=== PATIENT | female | born 1995 | race African-American/Black ===

== ENCOUNTER 2017-06-07 11:26 | Emergency (ER) | payer SELFPAY ==
[2017-06-07] MEDS ORDERED: DEXAMETHASONE SOD PHOS INJ 10 MG/1 ML VIAL IM ONE (12:24)
--- NOTE | 2017-06-07 12:42 | RADIOLOGY REPORT (SQ) ---
EXAM DESCRIPTION: CHEST PA/LAT COMPLETED DATE/TIME: 06/07/2017 12:32 pm REASON FOR STUDY: cough COMPARISON: None. EXAM PARAMETERS: NUMBER OF VIEWS: two views TECHNIQUE: Digital Frontal and Lateral radiographic views of the chest acquired. RADIATION DOSE: NA LIMITATIONS: none FINDINGS: LUNGS AND PLEURA: No opacities, masses or pneumothorax. No pleural effusion. MEDIASTINUM AND HILAR STRUCTURES: No masses or contour abnormalities. HEART AND VASCULAR STRUCTURES: Heart normal size. No evidence for failure. BONES: No acute findings. HARDWARE: None in the chest. OTHER: No other significant finding. IMPRESSION: NO SIGNIFICANT RADIOGRAPHIC FINDING IN THE CHEST. TECHNICAL DOCUMENTATION: JOB ID: [id number] [employer]- All Rights Reserved
[2017-06-07] MEDS ORDERED: KETOROLAC TROMETHAMINE INJ/PF 30 MG/1 ML SDV IM ONE (12:44)
--- NOTE | 2017-06-07 12:44 | ER Document Report ---
HPI - HPI Pain Level: 4 Notes: Patient is a 21-year-old female no significant past medical history presents the ED complaining of intermittent nasal congestion/discharge, dry semi- productive cough 1 week. Patient also complains of chest pain that is reproducible when she pushes on it x 1 week. Patient states that she has had these symptoms intermittently over the last year. Patient does admit to smoking but denies any IV drug use. Pt states that she can walk and keep active w/o any IRWIN or worsening symptoms. She denies any drug allergies. Patient states that her pains do not radiate. patient is not taking any hormones, denies any recent travel, immobilization, surgery/trauma, previous DVT /PE, or other coagulable diseases. Patient is otherwise eating and drinking without any difficulties. She is urinating normally and having normal bowel movements. Denies any headache, fever, neck pain, changes in vision/speech/ mentation/hearing, sore throat, palpitations, syncope, shortness of breath, wheeze, dyspnea, abdominal pain, nausea/vomiting/diarrhea, urinary retention, dysuria, hematuria, loss of control of bowel or bladder, numbness/tingling, or rash. - ROS Notes: REVIEW OF SYSTEMS: CONSTITUTIONAL : Denies fever, chills, or sweats. Denies recent illness. EENT: see hpi. CARDIOVASCULAR: see hpi. Denies palpitations or racing or irregular heart beat. Denies ankle edema. RESPIRATORY: see hpi. Denies shortness of breath, difficulty breathing, or wheezing. GASTROINTESTINAL: Denies abdominal pain or distention. Denies nausea, vomiting , or diarrhea. Denies blood in vomitus, stools, or per rectum. Denies black, tarry stools. Denies constipation. GENITOURINARY: Denies difficulty urinating, painful urination, burning, frequency, blood in urine, or discharge. MUSCULOSKELETAL: Denies back or neck pain or stiffness. Denies joint pain or swelling. SKIN: Denies rash, lesions or sores. NEUROLOGICAL: Denies dizziness or lightheadedness. Denies headache. Denies weakness or paralysis or loss of use of either side. Denies problems with gait or speech. Denies sensory loss, numbness, or tingling. Denies seizures. PSYCHIATRIC: Denies anxiety or stress. Denies depression, suicidal ideation, or homicidal ideation. ALL OTHER SYSTEMS REVIEWED AND NEGATIVE. Dictation was performed using [employer] voice recognition software - CONSTITUTIONAL Constitutional: DENIES: Fever, Chills - EENT EENT: DENIES: Sore Throat, Ear Pain, Eye problems - NEURO Neurology: DENIES: Headache, Weakness, Vision blurred, Dizzinesss / Vertigo - CARDIOVASCULAR Cardiovascular: REPORTS: Chest pain - RESPIRATORY Respiratory: REPORTS: Trouble Breathing, Coughing - GASTROINTESTINAL Gastrointestinal: DENIES: Abdominal Pain, Black / Bloody Stools - URINARY Urinary: DENIES: Dysuria, Urgency, Frequency - MUSCULOSKELETAL Musculoskeletal: DENIES: Extremity pain Past Medical History - Social History Smoking Status: Current Every Day Smoker Chew tobacco use (# tins/day): No Frequency of alcohol use: Occasional Drug Abuse: None Family History: Reviewed & Not Pertinent Patient has suicidal ideation: No Patient has homicidal ideation: No Renal/ Medical History: Denies: Hx Peritoneal Dialysis Vertical Provider Document - CONSTITUTIONAL Agree With Documented VS: Yes Notes: PHYSICAL EXAMINATION: GENERAL: Well-appearing, well-nourished and in no acute distress. A&Ox4 HEAD: Atraumatic, normocephalic. EYES: Pupils equal round and reactive to light, extraocular movements intact, sclera anicteric, conjunctiva are normal. ENT: EAC clear b/l. TM's intact b/l without erythema, fluid, or perforation. Nares patent and without discharge. oropharynx clear without exudates. No tonsilar hypertrophy or erythema. Moist mucous membranes. No sinus tenderness. Uvula midline. No palatine shift. No tongue protrusion. NECK: Normal range of motion, supple without lymphadenopathy. No rigidity/ menigismus. Chest: + tenderness to the costocondral area (corresponds to pain described). No flail chest. equal rise/fall. LUNGS: Breath sounds clear to auscultation bilaterally and equal. No wheezes rales or rhonchi. HEART: Regular rate and rhythm without murmurs, rubs, gallops. ABDOMEN: Soft, nontender, nondistended abdomen. No guarding, no rebound. No masses appreciated. Normal bowel sounds present. No CVA tenderness bilaterally. Musculoskeletal: FROM to passive/active. Strength 5+/5. Delmy neg b/l. no calf erythema or swelling. Extremities: No cyanosis, clubbing, or edema b/l. Peripheral pulses 2+. Capillary refill less than 3 seconds. NEUROLOGICAL: Cranial nerves grossly intact. Normal speech, normal gait. Normal sensory, motor exams PSYCH: Normal mood, normal affect. SKIN: Warm, Dry, normal turgor, no rashes or lesions noted. - INFECTION CONTROL TRAVEL OUTSIDE OF THE [place] IN LAST 30 DAYS: No - RESPIRATORY O2 Sat by Pulse Oximetry: 100 Course - Re-evaluation Re-evalutation: 06/07/17 12:57 Patient is an afebrile, well-hydrated, 21-year-old female who presents to the ED with acute bronchitis, suspect viral at this time. Vitals are stable. PE is otherwise unremarkable. Patient has a Well's score of 0 and a PERC score of 0. EKG and CXR unremarkable for acute pathology. Pt has otherwise low risk factors for emergent cardiopulmonary etiologies. Pt is not tachycardic and is able to walk and be active w/o difficulty or worsening symptoms. Pt chest pain is reproducible. Low suspicion for any ACS, PE, pneumothorax, pericarditis, dissection, respiratory compromise, severe dehydration, sepsis, meningitis, or other systemic emergent condition at this time. Patient is aware that her condition can change from initial presentation and she needs to monitor symptoms closely and seek medical attention for any acute changes. Decadron and Toradol given IM today. Advised pt to stop smoking. Recommend conservative measures for symptoms. Recheck with your PCM in 3-5 days. Return to the ED with any worsening/concerning symptoms otherwise as reviewed in discharge. Patient is in agreement. - Vital Signs Vital signs: Temp Pulse Resp BP Pulse Ox 99.8 F 99 22 H 141/75 H 100 06/07/17 11:32 06/07/17 11:32 06/07/17 11:32 06/07/17 11:32 06/07/17 11:32 Discharge - Discharge Clinical Impression: Acute bronchitis Qualifiers: Bronchitis organism: unspecified organism Qualified Code(s): J20.9 - Acute bronchitis, unspecified Condition: Stable Disposition: HOME, SELF-CARE Instructions: Bronchitis ([facility]) Additional Instructions: Maintain adequate fluid intake tylenol/ibuprofen as needed over the counter cold medication as needed for symptoms Humidified air may help with cough F/u: with your PCM in 3-5 days for a recheck Return to the ED with any fever, worsening pain, chest pain, palpitations, syncope, worsening PELLETIER, neck pain/stiffness, shortness of breath, wheezing, drooling, trouble swallowing/breathing, abdominal pain, n/v/d, rash, or worsening/concerning symptoms otherwise. Prescriptions: Albuterol Sulfate [Proair HFA Inhalation Aerosol 8.5 gm MDI] 2 puff IH Q4H PRN # 1 mdi PRN Reason: Forms: Elevated Blood Pressure, Smoking Cessation Education, Return to Work Referrals: [facility] [Provider Group] - Follow up as needed [facility] [Provider Group] - Follow up as needed
[2017-06-07 13:19] VITALS: BP 108/70
--- NOTE | 2017-06-07 20:33 | EKG REPORT ---
SEVERITY:- OTHERWISE NORMAL ECG - SINUS RHYTHM LEFT AXIS DEVIATION : Confirmed by: Deborah Holcomb MD 07-Jun-2017 20:32:42
== END 2017-06-07 13:26 | disposition home or self-care (01) ==
LOC: ER 11:26
DX: J20.9 Acute bronchitis, unspecified (principal); R09.81 Nasal congestion; R09.89 Other specified symptoms and signs involving the circulatory and respiratory systems; R05 Cough; R07.9 Chest pain, unspecified
CPT/HCPCS: 93005; 99284; 96372; 71020; 93010; J1885; J1100

== ENCOUNTER 2017-11-28 12:42 | Emergency (ER) | payer BC ==
--- NOTE | 2017-11-28 14:35 | ER Document Report ---
ED Medical Screen (RME) - General Chief Complaint: Psych Problem Stated Complaint: ANXIETY Time Seen by Provider: 11/28/17 14:28 Mode of Arrival: Ambulatory Information source: Patient, Parent TRAVEL OUTSIDE OF THE [place] IN LAST 30 DAYS: No - HPI Notes: 11/28/17 14:29 21 yr old female with a hx of untreated bipolar disorder with mother for complaints of anxiety attack that started today with chest pain pt is teary and not speaking very much. denies any intent to harm herself or others. Does not take any medications besides a depo shot once a month. Denies any fevers or chills. Denies any n/v/d, abd pain. denies any illicit drug use. Denies . Mother wants patient to have a pysch consult due to her anxiety becoming worse. I have greeted and performed a rapid initial assessment of this patient. A comprehensive ED assessment and evaluation of the patient, analysis of test results and completion of medical decision making process will be conducted by an additional ED providers. - Related Data Allergies/Adverse Reactions: No Known Allergies Allergy (Verified 11/28/17 12:45) Past Medical History Renal/ Medical History: Denies: Hx Peritoneal Dialysis Physical Exam - Vital signs Vitals: Temp Pulse Resp BP Pulse Ox 99.4 F 84 16 133/58 H 98 11/28/17 12:50 11/28/17 12:50 11/28/17 12:50 11/28/17 12:50 11/28/17 12:50 - Respiratory Respiratory status: No respiratory distress Chest status: Nontender Breath sounds: Normal Chest palpation: Normal - Cardiovascular Rhythm: Regular Normal capillary refill: Yes - Psychological Associated symptoms: Flat affect, Tearful Course - Vital Signs Vital signs: Temp Pulse Resp BP Pulse Ox 99.4 F 84 16 133/58 H 98 11/28/17 12:50 11/28/17 12:50 11/28/17 12:50 11/28/17 12:50 11/28/17 12:50
[2017-11-28 15:29] LABS: ABSOLUTE EOSINOPHILS # (AUTO) 0.1 10^3/uL (0.0-0.6); ABSOLUTE LYMPHOCYTES (AUTO) 1.9 10^3/uL (0.5-4.7); ABSOLUTE MONOCYTES (AUTO) 0.5 10^3/uL (0.1-1.4); ABSOLUTE NEUT (AUTO) 4.9 10^3/uL (1.7-8.2); BASOPHILS % (AUTO) 0.6 % (0-2); EOSINOPHILS % (AUTO) 0.7 % (0-6); HEMOGLOBIN 13.7 g/dL (12.0-15.5); MEAN CORPUSCULAR HEMOGLOBIN 29.5 pg (27.0-33.4); MEAN CORPUSCULAR HGB CONC 34.1 g/dL (32.0-36.0); MEAN CORPUSCULAR VOLUME 87 fl (80-97); MONOCYTES % (AUTO) 6.3 % (3-13); PLATELET COUNT 264 10^3/uL (150-450); RED BLOOD COUNT 4.62 10^6/uL (3.72-5.28); RED CELL DISTRIBUTION WIDTH 14.5 % (11.5-14.0); SEGMENTED NEUTROPHILS % (AUTO) 66.4 % (42-78); TOTAL CELLS COUNTED % (AUTO) 100 %; WHITE BLOOD COUNT 7.4 10^3/uL (4.0-10.5)
[2017-11-28 15:50] LABS: ALANINE AMINOTRANSFERASE 27 U/L (9-52); ALBUMIN 4.7 g/dL (3.5-5.0); ALKALINE PHOSPHATASE 72 U/L (38-126); ANION GAP 10 (5-19); ASPARTATE AMINO TRANSFERASE 21 U/L (14-36); BILIRUBIN,DIRECT 0.2 mg/dL (0.0-0.4); BILIRUBIN,TOTAL 0.6 mg/dL (0.2-1.3); BLOOD UREA NITROGEN 14 mg/dL (7-20); CALCIUM 9.6 mg/dL (8.4-10.2); CARBON DIOXIDE 28 mmol/L (22-30); CHLORIDE 107 mmol/L (98-107); GLUCOSE 92 mg/dL (75-110); POTASSIUM 4.2 mmol/L (3.6-5.0); SODIUM 145.2 mmol/L (137-145); TOTAL PROTEIN 8.2 g/dL (6.3-8.2)
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
[2017-11-28] MEDS ORDERED: OLANZAPINE 5 MG TABLET PO ONE (17:20)
[2017-11-28] MEDS ORDERED: BUSPIRONE HCL 10 MG TABLET PO ONE (17:20)
--- NOTE | 2017-11-28 17:23 | ER Document Report ---
ED General - General Chief Complaint: Psych Problem Stated Complaint: ANXIETY Time Seen by Provider: 11/28/17 14:28 Mode of Arrival: Ambulatory Notes: 21 yr old female with a hx of untreated bipolar disorder presents with her mother for complaints of anxiety attack that started today with chest pain pt is teary and not speaking very much. denies any intent to harm herself or others. Does not take any medications besides a depo shot once a month. Denies any fevers or chills. Denies any illicit drug use. Mother wants patient to have a pysch consult due to her anxiety becoming worse. Patient denies suicidal and homicidal. Patient denies recent illness. Mother is at the bedside and is supportive of the patient. TRAVEL OUTSIDE OF THE [place] IN LAST 30 DAYS: No - Related Data Allergies/Adverse Reactions: No Known Allergies Allergy (Verified 11/28/17 12:45) Past Medical History - General Information source: Patient, Parent - Social History Smoking Status: Never Smoker Chew tobacco use (# tins/day): No Frequency of alcohol use: None Drug Abuse: None Lives with: Family Family History: Reviewed & Not Pertinent Patient has suicidal ideation: No Patient has homicidal ideation: No Renal/ Medical History: Denies: Hx Peritoneal Dialysis Psychiatric Medical History: Reports: Hx Depression Review of Systems - Review of Systems Notes: REVIEW OF SYSTEMS: CONSTITUTIONAL : Denies fever, chills, or sweats. Denies recent illness. Denies weight loss, recent hospitalizations. EENT: Denies visual changes, eye pain. Denies nasal or sinus congestion or discharge. Denies sore throat, oral lesions, difficulty swallowing. CARDIOVASCULAR: Denies palpitations. Denies lower extremity edema. RESPIRATORY: Denies cough, cold, or chest congestion. Denies shortness of breath, wheezing. GASTROINTESTINAL: Denies abdominal pain or distention. Denies nausea, vomiting , or diarrhea. Denies blood in vomitus, stools, or per rectum. Denies black, tarry stools. Denies constipation. GENITOURINARY: Denies difficulty urinating, painful urination, frequency, blood in urine, or vaginal discharge. MUSCULOSKELETAL: Denies back or neck pain or stiffness. Denies joint pain or swelling. SKIN: Denies rash, lesions or sores. HEMATOLOGIC : Denies easy bruising or bleeding. LYMPHATIC: Denies swollen glands. NEUROLOGICAL: Denies confusion or altered mental status. Denies passing out or loss of consciousness. Denies dizziness or lightheadedness. Denies headache. Denies weakness or paralysis. Denies problems difficulty with ambulation, slurred speech. Denies sensory loss, numbness, or tingling. Denies seizures. PSYCHIATRIC: denies suicidal ideation, homicidal ideation. Denies visual or auditory hallucinations. Physical Exam - Vital signs Vitals: Temp Pulse Resp BP Pulse Ox 99.4 F 84 16 133/58 H 98 11/28/17 12:50 11/28/17 12:50 11/28/17 12:50 11/28/17 12:50 11/28/17 12:50 - Notes Notes: PHYSICAL EXAMINATION: GENERAL: Well-appearing, well-nourished and in no acute distress. HEAD: Atraumatic, normocephalic. EYES: Pupils equal round and reactive to light, extraocular movements intact, conjunctiva are normal. ENT: Nares patent, oropharynx clear without exudates. Moist mucous membranes. NECK: Normal range of motion, supple without lymphadenopathy LUNGS: Breath sounds clear to auscultation bilaterally and equal. No wheezes rales or rhonchi. HEART: Regular rate and rhythm without murmurs ABDOMEN: Soft, nontender, nondistended abdomen. No guarding, no rebound. No masses appreciated. Female : deferred Musculoskeletal: Normal range of motion, no pitting or edema. No cyanosis. NEUROLOGICAL: Cranial nerves grossly intact. Normal speech, normal gait. Normal sensory, motor exams PSYCH: Anxious, tearful. Denies suicidal, homicidal ideation patient. Admits to a good support system at home. Does not have access to weapons. SKIN: Warm, Dry, normal turgor, no rashes or lesions noted. Course - Re-evaluation Re-evalutation: 11/29/17 22:45 21-year-old female presents with complaint of increased anxiety that started today when she awoke. She states that she began to feel overwhelmed and spoke to her mother convinced her to come to the hospital today. She denies any suicidal, homicidal ideation. She was evaluated by psychiatry and home going medication recommendations were given. Patient was provided prescriptions for his recommended medications. Mother is at the bedside and states that she feels comfortable taking the daughter home. Patient provided the opportunity to ask questions, and express concerns. Discharge instructions discussed. Patient is agreeable with discharge home. Return indications explained and discussed with the patient who displays understanding. Patient encouraged to return to the emergency department immediately with any concerns. - Vital Signs Vital signs: Temp Pulse Resp BP Pulse Ox 97.9 F 68 20 122/52 L 100 11/28/17 17:34 11/28/17 17:34 11/28/17 17:34 11/28/17 17:34 11/28/17 17:34 - Laboratory Result Diagrams: 11/28/17 15:16 11/28/17 15:16 Laboratory results interpreted by me: 11/28/17 11/28/17 15:16 15:16 RDW 14.5 H Sodium 145.2 H Discharge - Discharge Clinical Impression: Bipolar 1 disorder, Anxiety Condition: Good Disposition: HOME, SELF-CARE Instructions: Anxiety ([facility]), Bipolar Disorder ([facility]) Additional Instructions: Please follow-up as recommended by psychiatry. You were provided an information sheet of available resources. Please return to the emergency department with any concerns. Prescriptions: Buspirone HCl [Buspar 5 mg Tablet] 1 tab PO BID #60 tab Olanzapine [Zyprexa 5 mg Tablet] 5 mg PO Q12 #60 tablet Forms: Elevated Blood Pressure
[2017-11-28] MEDS ORDERED: IBUPROFEN 600 MG TABLET PO ONE (17:25)
[2017-11-28 17:36] VITALS: BP 122/52
--- NOTE | 2017-11-28 18:51 | EKG REPORT ---
SEVERITY:- OTHERWISE NORMAL ECG - SINUS RHYTHM LEFT AXIS DEVIATION : Confirmed by: Rfaael Agrawal 28-Nov-2017 18:49:40
== END 2017-11-28 17:36 | disposition home or self-care (01) ==
LOC: ER 12:42
DX: F41.9 Anxiety disorder, unspecified (principal); F31.9 Bipolar disorder, unspecified; Z79.3 Long term (current) use of hormonal contraceptives
CPT/HCPCS: 36415; 80053; 81025; 85025; 93005; 93010; 99285